=== PATIENT | male | born 1955 | race Two or more races ===

== ENCOUNTER 2018-01-19 12:17 | Inpatient (IN) | payer BC, OTHER ==
[~2018-01-19] VITALS: Ht 172.7 cm; Wt 90.1 kg
[~2018-01-19 12:17] MED LIST: ASPI-496 PO; ATOR20TA9 PO; AZEL6DRO2 EACHEYE; FINA5TAB4 PO; TAMS-11 PO; [UNRECOGNIZED DRUG - OTHER] PO
[2018-01-19 12:52] VITALS: BP 130/87
[2018-01-19] MEDS: LACTATED RINGERS 1,000 ML IV SCH (13:16)
[2018-01-19] MEDS ORDERED: MIDAZOLAM 1 MG/ML, 2ML ONE (14:36)
[2018-01-19] MEDS ORDERED: FENTANYL PF 250 MCG/5ML ONE (14:36)
[2018-01-19] MEDS ORDERED: BUPIVACAINE/PF 0.25% ONE (15:48)
[2018-01-19] MEDS ORDERED: THROMBIN 5,000 UNIT VIAL TP ONE ×2 (16:09→16:23)
[2018-01-19] MEDS ORDERED: LABETALOL 5MG/ML, 20ML IV PRN (17:00)
[2018-01-19] MEDS ORDERED: MEPERIDINE/PF 25MG/0.5ML IVPush PRN (17:00)
[2018-01-19] MEDS ORDERED: GABAPENTIN 300 MG CAPSULE PO ONE (17:00)
[2018-01-19] MEDS ORDERED: PROMETHAZINE 25 MG/ML, 1ML IV PRN (17:00)
[2018-01-19] MEDS ORDERED: ACETAMINOPHEN 325 MG TABLET PO PRN (17:00)
[2018-01-19] MEDS ORDERED: ALBUTEROL/IPRATROPIUM 2.5MG/0.5MG, 3 ML NPPB PRN (17:00)
[2018-01-19] MEDS ORDERED: OXYcodone 5 MG/5 ML ORAL.SOL UDC PO PRN (17:00)
[2018-01-19] MEDS ORDERED: MIDAZOLAM 1 MG/ML, 2ML IV PRN (17:00)
[2018-01-19] MEDS ORDERED: SCOPOLAMINE PATCH, 1.5MG PATCH.TD72 TD PRN (17:00)
[2018-01-19] MEDS ORDERED: ONDANSETRON 2MG/ML, 2ML IV PRN ×2 (17:00→22:30)
[2018-01-19] MEDS ORDERED: SUCCINYLCHOLINE 20 MG/ML, 10ML ONE (18:34)
[2018-01-19] MEDS ORDERED: ONDANSETRON 2MG/ML, 2ML ONE (18:34)
[2018-01-19] MEDS ORDERED: PROPOFOL 10 MG/ML, 20ML ONE (18:34)
[2018-01-19] MEDS ORDERED: ROCURONIUM 10MG/ML,5ML ONE (18:34)
[2018-01-19] MEDS ORDERED: DEXAMETHASONE 4 MG/ML, 1ML ONE (18:34)
[2018-01-19] MEDS ORDERED: GLYCOPYRROLATE 0.2MG/1ML, 5ML ONE (18:34)
[2018-01-19] MEDS ORDERED: NEOSTIGMINE 1 MG/ML, 10ML ONE (18:34)
[2018-01-19] MEDS ORDERED: CEFAZOLIN 1,000 MG ONE (18:34)
[2018-01-19] MEDS ORDERED: HYDROmorphone 2 MG/ML, 1ML ONE (19:03)
[2018-01-19] MEDS ORDERED: ACETAMINOPHEN 650 MG/20.3 ML UDC ONE (19:03)
[2018-01-19] MEDS ORDERED: FENTANYL PF 100 MCG/2ML ONE (19:03)
[2018-01-19] MEDS ORDERED: OXYcodone 5 MG/5 ML ORAL.SOL UDC ONE (19:04)
[2018-01-19] MEDS: FENTANYL PF 100 MCG/2ML IV PRN ×2 (19:06→19:20)
[2018-01-19] MEDS: HYDROmorphone 1 MG/ML, 1ML IV PRN ×3 (19:42→20:15)
[2018-01-19 20:55] LABS: ALBUMIN 3.4 g/dL (3.4-5.0); ANION GAP 10 mmol/L (5-15); CALCIUM 8.2 mg/dL (8.5-10.1); CHLORIDE 110 mmol/L (98-107)
[2018-01-19 20:56] LABS: CREATININE 0.96 mg/dL (0.7-1.3)
[2018-01-19] MEDS ORDERED: morphine SULFATE 10 MG/ML, 1ML IV PRN (22:30)
[2018-01-19] MEDS ORDERED: CEFOXITIN PMX 1GM/50ML 50 ML IVPB SCH (22:30)
[2018-01-19] MEDS ORDERED: OXYcodone IR 5MG TABLET PO PRN (22:30)
[2018-01-19] MEDS: SODIUM CHLORIDE 0.9% 1,000 ML IV SCH (23:28)
[2018-01-19] MEDS: CEFAZOLIN PMX 1GM/50ML 50 ML IVPB SCH (23:28)
[2018-01-20 02:10] VITALS: BP 128/85
[2018-01-20] MEDS: LACTATED RINGERS 1,000 ML IV SCH (04:37)
[2018-01-20 05:24] LABS: ANION GAP 5 mmol/L (5-15); CALCIUM 7.5 mg/dL (8.5-10.1); CHLORIDE 109 mmol/L (98-107); CREATININE 0.91 mg/dL (0.7-1.3)
[2018-01-20] MEDS: DOCUSATE 50 MG/5 ML, 10ML UDC NG SCH (07:36)
[2018-01-20] MEDS: CEFAZOLIN PMX 1GM/50ML 50 ML IVPB SCH (07:36)
[2018-01-20] MEDS: SODIUM CHLORIDE 0.9% 1,000 ML IV SCH ×3 (07:36→23:31)
[2018-01-20] MEDS: POLYETHYLENE GLYCOL 17 GM PACKET PO SCH (07:36)
[2018-01-20 07:39] VITALS: BP 103/63
[2018-01-20 12:33] VITALS: BP 99/64
[2018-01-20 19:35] VITALS: BP 115/65
[2018-01-20] MEDS ORDERED: ZOLPIDEM 10MG TABLET PO PRN (21:30)
[2018-01-21 01:03] VITALS: BP 101/48
[2018-01-21 04:31] VITALS: BP 115/72
[2018-01-21 05:40] LABS: BASOPHILS # (AUTO) 0.02 x10^3/uL (0-0.1); BASOPHILS % (AUTO) 0 % (0-1); EOSINOPHILS # (AUTO) 0.03 x10^3/uL (0-0.4); EOSINOPHILS % (AUTO) 0 % (1-7); LYMPHOCYTES # (AUTO) 1.91 x10^3/uL (1-3.4); LYMPHOCYTES % (AUTO) 23 % (22-44); MD NO; MEAN CORPUSCULAR HEMOGLOBIN 30.6 pg (27.5-34.5); MEAN CORPUSCULAR HGB CONC 33.5 g/dL (33.2-36.2); MEAN CORPUSCULAR VOLUME 91.6 fL (81-97); MEAN PLATELET VOLUME 7.6 fL (7.4-10.4); MONOCYTES # (AUTO) 0.88 x10^3/uL (0.2-0.8); MONOCYTES % (AUTO) 11 % (2-9); NEUTROPHILS # (AUTO) 5.49 x10^3/uL (1.8-6.8); NEUTROPHILS % (AUTO) 66 % (42-75); PLATELET COUNT 224 x10^3/uL (130-400); RED BLOOD COUNT 3.62 x10^6/uL (4.38-5.82); RED CELL DISTRIBUTION WIDTH 13.6 % (9.4-14.8)
[2018-01-21 05:46] LABS: ANION GAP 6 mmol/L (5-15); CALCIUM 7.7 mg/dL (8.5-10.1); CHLORIDE 112 mmol/L (98-107)
[2018-01-21 05:50] LABS: CREATININE 0.87 mg/dL (0.7-1.3)
[2018-01-21 07:30] VITALS: BP 104/63
[2018-01-21] MEDS: POLYETHYLENE GLYCOL 17 GM PACKET PO SCH (08:40)
[2018-01-21] MEDS: SODIUM CHLORIDE 0.9% 1,000 ML IV SCH ×3 (08:40→23:21)
[2018-01-21] MEDS: DOCUSATE 50 MG/5 ML, 10ML UDC NG SCH (08:40)
[2018-01-21 14:17] VITALS: BP 120/70
[2018-01-21 19:20] VITALS: BP 125/73
[2018-01-21] MEDS: ACETAMINOPHEN 500 MG TABLET PO PRN (21:11)
[2018-01-22 02:27] VITALS: BP 109/67
[2018-01-22 05:38] LABS: ANION GAP 6 mmol/L (5-15); CALCIUM 7.7 mg/dL (8.5-10.1); CHLORIDE 110 mmol/L (98-107); CREATININE 0.81 mg/dL (0.7-1.3)
[2018-01-22 06:51] VITALS: BP 109/71
[2018-01-22] MEDS: SODIUM CHLORIDE 0.9% 1,000 ML IV SCH ×3 (06:58→23:18)
[2018-01-22] MEDS: DOCUSATE 50 MG/5 ML, 10ML UDC NG SCH (10:02)
[2018-01-22] MEDS: POLYETHYLENE GLYCOL 17 GM PACKET PO SCH (10:02)
[2018-01-22 12:49] VITALS: BP 127/80
[2018-01-22] MEDS: ACETAMINOPHEN 500 MG TABLET PO PRN (16:17)
[2018-01-22 20:06] VITALS: BP 100/62
[2018-01-23 03:18] VITALS: BP 109/72
[2018-01-23 05:47] LABS: ANION GAP 5 mmol/L (5-15); CALCIUM 7.9 mg/dL (8.5-10.1); CHLORIDE 112 mmol/L (98-107)
[2018-01-23] MEDS: SODIUM CHLORIDE 0.9% 1,000 ML IV SCH (06:11)
[2018-01-23 07:49] VITALS: BP 106/63
[2018-01-23] MEDS: POLYETHYLENE GLYCOL 17 GM PACKET PO SCH (08:01)
[2018-01-23] MEDS: DOCUSATE 50 MG/5 ML, 10ML UDC NG SCH (08:01)
[2018-01-23] MEDS: ACETAMINOPHEN 500 MG TABLET PO PRN (08:19)
[2018-01-23] MEDS ORDERED: OXYC5TAB3 PO (13:49)
== END 2018-01-23 14:10 | disposition home or self-care (01) | DRG 715 ==
LOC: OUT 12:17 → 4NOR 21:30 → OUT 21:57 → 4NOR 22:23 → DCLOUNGE 01-23 13:38
PROVIDERS: ADMIT Student in an Organized Health Care Education/Training Program; ATTEND Student in an Organized Health Care Education/Training Program
PROC: 0VB04ZZ Excision of Prostate, Percutaneous Endoscopic Approach (ICD-10-PCS; principal; 2018-01-20)
PROC: 8E0W4CZ Robotic Assisted Procedure of Trunk Region, Percutaneous Endoscopic Approach (ICD-10-PCS; 2018-01-20)
DX: C61 Malignant neoplasm of prostate (principal); N13.8 Other obstructive and reflux uropathy; K56.7 Ileus, unspecified; N40.1 Benign prostatic hyperplasia with lower urinary tract symptoms
CPT/HCPCS: 36415; J3490; 80048; 82040; 82570; 85014; 85018; 85025; 86850; 86900; 88307; 88309; C1729; J0690; J1100; J1170; J2250; J2405; J2704; J2710; J3010; C1760; J0330; J7030; J7120